=== PATIENT | female | born 1985 | race Caucasian/White ===

== ENCOUNTER 2017-02-04 03:30 | Emergency (ER) | payer MEDICAID ==
[2017-02-04 03:52] VITALS: BP 126/83
== END 2017-02-04 05:02 | disposition left against medical advice (07) ==
LOC: ED 03:30
DX: Z53.21 Procedure and treatment not carried out due to patient leaving prior to being seen by health care provider (principal)

== ENCOUNTER 2018-12-28 10:16 | Emergency (ER) | payer OTHER ==
[~2018-12-28] VITALS: Ht 160 cm; Wt 61.7 kg
[2018-12-28 10:30] VITALS: Ht 160 cm; Wt 61.7 kg
[2018-12-28 11:12] VITALS: BP 121/62
== END 2018-12-28 11:12 | disposition home or self-care (01) ==
LOC: ED 10:16
DX: M54.2 Cervicalgia (principal)